=== PATIENT | male | born 1965 | race Caucasian/White ===

== ENCOUNTER → 2018-03-30 07:39 | Outpatient (CLI) | payer BC | END | disposition home or self-care (01) | LOC: D.CT 07:39 | DX: I67.1 Cerebral aneurysm, nonruptured (principal) ==

== ENCOUNTER 2021-03-19 11:30 | Day surgery (SDC) | payer BC ==
[~2021-03-19] VITALS: Ht 185.4 cm; Wt 107.4 kg
--- NOTE | ~2021-03-19 | HEMODYNAMI ---
PATIENT:GIOVANNI NOWAK MEDICAL RECORD: [id number] : 65 LOCATION:[facility] ADMISSION DATE: 03/19/21 Generatedon:114:02 Patient name: GIOVANNI NOWAK Patient #: [id number] : 1965 Date of study: 03/19/2021 Page: Of Hemodynamic Procedure Report Patient Data Patient Demographics Procedure consent was obtained First Name: GIOVANNI Gender: Male Last Name: ELIU : 1965 Middle Initial: KEMAL Age: 56 year(s) Patient #: [id number] Race: SSN: [id number] Additional ID: [id number] Contact details [address]: [address] [place] [address] State: [place] City: [place] Zip code: [address] Past Medical History Allergies: No known allergies Admission Admission Data Admission Date: 03/19/2021 Admission Time: 11:30 Arrival Date: 03/19/2021 Arrival Time: 13:00 Admit Source: Other Insurance Payor: Private health insurance [facility] #: [id number] Height (in.): 73 BSA: 2.32 (m2) Height (cm.): 185.42 BMI: 31.53 (kg/m2) Weight (lbs.): 239 Weight (kg.): 108.41 Lab Results Lab Result Date: 03/19/2021 Lab Result Time: 0:00 Biochemistry Name Units Result Min Max BUN mg/dl 19 --(----)*- 7 18 Creatinine mg/dl 1 --(--*-)-- 0.6 1.3 eGFR ml/min 82.11958 *-(----)-- 90 120 NONAFRICAN CBC Name Units Result Min Max Hematocrit % 46.7 --(-*--)-- 42 54 Hemoglobin g/dl 16.4 --(--*-)-- 13.5 17.5 Procedure Procedure Types Cath Procedure Diagnostic Procedure [facility] w/Coronaries FFR/IVUS FFR Initial Sedation Charges Moderate Sedation 25-39 minutes PCI Procedure Hemochron ACT Test Procedure Description Procedure Date Procedure Date: 03/19/2021 Procedure Start Time: 13:22 Procedure End Time: 14:00 Procedure Staff Name Function Gregory Nguyen MD Performing Physician Dayami Box RT Monitor Elenita Muro RT Scrub Vane Higgins RN Nurse Procedure Data Cath Procedure Fluoroscopy Diagnostic fluoroscopy Total fluoroscopy Time: 7.8 time: 7.8 min min Diagnostic fluoroscopy Total fluoroscopy dose: dose: 1198 mGy 1198 mGy Contrast Material Contrast Material Type Amount (ml) Isovue 370 99 Entry Location Entry Primary Successful Side Size Upsize Upsize Entry Closure Gardner ccessful Closure Location (Fr) 1 (Fr) 2 (Fr) Remarks Device Remarks Radial Right 6 Fr Mechanical artery Short Compression Femoral Right 5 Fr Exoseal artery Estimated blood loss: 10 ml Diagnostic catheters Device Type Used For End Catheter Placement DIAGNOSTIC [place] 110cm 5 Procedure Fr catheter ([id number]) Procedure Complications No complications Procedure Medications Medication Administration Route Dosage 0.9% NaCl I.V. 100 ml/hr Heparin Flush Bag added to field 2 bags (1000units/500ml NS) Lidocaine 2% added to field 20 Oxygen NC 3 l/min Radial Cocktail added to field 1 syringe (Verapamil 2mg/Nitro 400mcg/Heparin 1500units) Versed I.V. 1 mg Fentanyl 50 mcg Heparin Bolus I.V. 5000 units Versed I.V. 1 mg Fentanyl 50 mcg Versed I.V. 1 mg Fentanyl 50 mcg Versed I.V. 1 mg Fentanyl 50 mcg Hemodynamics Rest BSA: 2.32 (m2) HGB: 16.4 (g/dl) O2 Consumption: Estimated: 254.89 (ml/min) O2 Co nsumption indexed: Estimated:109.87 (ml/min/m) Heart Rate: 48 (bpm) Pressure Samples Time Site Value (mmHg) Purpose Heart Use Rate(bpm) 13:27 LV 132/31,44 Snapshot 59 Gradients Valve Time Site Site Mean SEP/DFP Peak To Heart Use 1 2 (mmHg) (sec/min) Peak Rate (mmHg) (bpm) Aortic 13:28 LV AO 63 Snapshots Pre Cath Intra NCS Post Cath Vital Signs Time Heart Resp SPO2 etCO2 NIBP (mmHg) Rhythm Pain Sedation Rate (ipm) (%) (mmHg) Status Level (bpm) 13:08:43 55 20 98 38.4 161/95(137) NSR 0 (11) 10(A) , No pain 13:13:01 49 15 99 36.9 148/89(114) NSR 0 (11) 10(A) , No pain 13:18:19 51 17 96 0 135/78(103) NSR 0 (11) 10(A) , No pain 13:22:41 49 12 91 33.1 132/75(100) NSR 0 (11) 10(A) , No pain 13:27:03 58 21 96 39.9 127/75(104) NSR 0 (11) 9(A) , No pain 13:31:23 62 12 89 24.8 124/76(92) NSR 0 (11) 9(A) , No pain 13:35:45 53 20 96 36.2 124/71(103) NSR 0 (11) 9(A) , No pain 13:39:57 51 13 98 18.1 117/73(91) NSR 0 (11) 9(A) , No pain 13:44:15 51 13 98 39.9 116/72(89) NSR 0 (11) 9(A) , No pain 13:48:35 51 15 97 41.4 106/67(93) NSR 0 (11) 9(A) , No pain 13:52:52 54 19 98 40.7 124/70(105) NSR 0 (11) 9(A) , No pain 13:58:09 50 26 96 0 119/71(98) NSR 0 (11) 10(A) , No pain Medications Time Medication Route Dose Verified Delivered Reason Note s Effectiveness by by 13:08:09 0.9% NaCl I.V. 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 1 mg Gregory Vane for sedation Patrick Higgins RN 13:23:47 Fentanyl 50 mcg Gregory Vane for sedation Patrick Higgins RN 13:27:15 Versed I.V. 1 mg Gregory Vane for sedation Patrick Higgins RN 13:27:33 Fentanyl 50 mcg Gregory Vane for sedation Patrick Higgins RN 13:31:01 Fentanyl 50 mcg Gregory Vane for sedation Patrick Higgins RN 13:31:42 Versed I.V. 1 mg Gregory Vane for sedation Patrick Higgins RN 13:35:10 Versed I.V. 1 mg Gregory Vane for sedation Patrick Higgins RN 13:35:46 Fentanyl 50 mcg Gregory Vane for sedation Patrick Higgins RN 13:44:03 Heparin Bolus I.V. 5000 Gregory Vane for veri fied units Patrick Higgins anticoagulation with dr SHARONA nguyen Procedure Log Time Note 12:53:36 Diagnostic Cath Status : Elective 12:54:10 Informed consent obtained and on chart 12:54:45 Arrival Date: 03/19/2021 1:00:00 PM 12:55:04 Admit Source: Other 12:55:06 Insurance Payor : Private health insurance 12:55:10 Patient Height : 73 inches 12:55:20 Patient Weight : 239 lbs 12:55:37 Procedure Status Elective Heart Cath (OP). 12:55:39 Elenita Muro RT(R) sent for patient. Start room use. 12:55:40 Time tracking: Regular hours (M-F 7:00 - 5:00) 12:55:44 Plan of Care:Hemodynamics will remain stable., Cardiac rhythm will remain stable., Comfort level will be maintained., Respiratory function will remain adequate., Patient/ family verbilizes understanding of procedure., Procedure tolerated without complication., Recovers from procedure without complications.. 13:01:02 ACC Patient presents with Stable Angina CCS Anginal Class 2--Slight limitation of ordinary activity. 13:01:05 Warm blankets applied, and jigna hugger turned on for patient comfort. 13:01:05 Correct patient and procedure confirmed by team. 13:01:06 ECG and BP/O2 sat monitors applied to patient. 13:01:10 Patient received from Pre/Post Procedure Room to CCL 2 Alert and oriented. Tansferred to table in Supine position. 13:01:22 H&P Date Dictated: 03/11/2021 Within 30 days and on chart.. 13:01:24 Pre-procedure instructions explained to patient. 13:01:24 Pre-op teaching completed and patient verbalized understanding. 13:01:26 Family in waiting room. 13::27 Patient NPO since Midnight. 13:01:33 Patient allergic to No known allergies 13:06:26 Vital chart was started 13:08:09 0.9% NaCl 100 ml/hr I.V. was administered by Vane Higgins RN; used for procedure; Verbal order read back and verified. 13:08:18 Heparin Flush Bag (1000units/500ml NS) 2 bags added to field was administered by Vane Higgins RN; used for procedure; Verbal order read back and verified. 13:08:26 Lidocaine 2% 20ml vial added to field was administered by Vane Higgins RN; for local anesthetic; Verbal order read back and verified. 13:08:36 Oxygen 3 l/min NC was administered by Vane Higgins RN; for low 02 sats; Verbal order read back and verified. 13:11:02 Baseline sample Acquired. 13:11:03 Full Disclosure recording started 13:11:06 Is the patient allergic to Iodine/contrast media? No. 13:11:10 Was the patient premedicated? Yes 13:11:11 Is patient on blood thinner?No 13:11:13 Patient diabetic? No. 13:11:14 If diabetic: On Metformin? N/A 13:11:15 ----Pre-sedation anethsthesia assessment.---- 13:11:17 Previous problem with sedation/anesthesia? No ? 13:11:19 Snore? Yes 13:11:20 Sleep apnea? Unknown 13:11:21 Deviated septum? No 13:11:23 Opens mouth fully? Yes 13:11:24 Sticks out tongue? Yes 13:11:26 Airway obstruction? No ? 13:11:28 Dentures? No ? 13:11:31 Pre procedure: right dorsailis pedis pulse 1+ Palpable, but thready & weak; easily obliterated 13:11:34 Modified Clay's test Ulnar < 7 seconds 13:11:37 Patient pain scale 0/10 ?. 13:11:44 IV patent on arrival in left forearm with 0.9% NaCl at [facility]. 13:12:31 Alarms reviewed by R. N. 13:12:31 Sharps counted by scrub and verified by R.N. 13:13:26 Lab results completed and on chart. 13:13:29 Stress Test: no; N/A ? 13:13:32 Right Radial & Right Groin area was prepped with chlora-prep and draped in sterile fashion 13:13:41 Rhythm: sinus bradycardia 13:14:41 Lab Result : BUN 19 mg/dl 13:14:41 Lab Result : Creatinine 1 mg/dl 13:14:41 Lab Result : eGFR NONAFRICAN 82.96947 ml/min 13:14:41 Lab Result : Hemoglobin 16.4 g/dl 13:14:41 Lab Result : Hematocrit 46.7 % 13:15:04 Use device set Radial Dx or PCI 13:15:06 ACIST Syringe (13069) opened to sterile field. 13:15:06 Medline Cath Pack ([id number]) opened to sterile field. 13:15:07 Bag Decanter (2002) opened to sterile field. 13:15:08 ACIST Hand Control (22315) opened to sterile field. 13:15:08 ACIST Manifold (64574) opened to sterile field. 13:15:09 MBrace Wrist Support ([id number]) opened to sterile field. 13:15:10 NEEDLE Cook 21G 4cm Radial (L97278) opened to sterile field. 13:15:12 EMERALD Guide Wire (950-906) opened to sterile field. 13:15:12 SHEATH 6FR RAIN (5752159) opened to sterile field. 13:18:51 Radial Cocktail (Verapamil 2mg/Nitro 400mcg/Heparin 1500units) 1 syringe added to field was administered by Vane Higgins RN; for vasodilation; Verbal order read back and verified. 13:20:20 --------ALL STOP TIME OUT------ 13:20:20 Final Timeout: patient, procedure, and site verified with staff and physician. All members of the team are in agreement. 13:20:22 Right Radial & Right Groin site verified by team. 13:20:26 Fire Safety Assessment: A--An alcohol-based skin anteseptic being used preoperatively., C--Open oxygen or nitrous oxide is being used., D--An ESU, laser, or fiber-optic light is being used. 13:20:28 Physical assessment completed. ASA score P 2 - A patient with mild systemic disease as per Gregory Nguyen MD. 13:20:31 2) 60-89 Mildly reduced kidney function, and other findings (as for stage 1) point to kidney disease. 13:21:00 Maximum allowable contrast dose (3.7 X eGFR X 0.75)228 ml. 13:21:03 Sedation plan: IV Moderate Sedation Medication:Versed, Fentanyl 13:22:52 Procedure started. 13:22:58 Local anesthetic to right radial artery with Lidocaine 2% by Gregory Nguyen MD.INITIAL ACCESS ONLY 13:23:40 Versed 1 mg I.V. was administered by Vane Higgins RN; for sedation; Verbal order read back and verified. 13:23:47 Fentanyl 50 mcg was administered by Vane Higgins RN; for sedation; Verbal order read back and verified. 13:25:40 A 6 Fr Short sheath was inserted into the Right Radial artery 13:26:33 A DIAGNOSTIC [place] 110cm 5 Fr catheter (497358) was advanced over the wire and used for Procedure. 13:27:15 Versed 1 mg I.V. was administered by Vane Higgins RN; for sedation; Verbal order read back and verified. 13:27:31 LV gram done using GARCIA 13:27:33 Fentanyl 50 mcg was administered by Vane Higgins RN; for sedation; Verbal order read back and verified. 13:27:34 Injector settings: Ml/sec: 5, Volume: 15, 13:27:59 LV hemodynamics recorded. 13:28:18 EF : 40 % 13:29:35 RCA angiography performed. 13:29:41 Injector settings: Ml/sec: 3, Volume: 6, 13:31:01 Fentanyl 50 mcg was administered by Vane Higgins RN; for sedation; Verbal order read back and verified. 13:31:42 Versed 1 mg I.V. was administered by Vane Higgins RN; for sedation; Verbal order read back and verified. 13:33:16 UNABLE TO ENGAGE CHANGING GUIDES. 13:33:19 Catheter exchanged over wire. 13:34:19 GUIDE 5FR EBU 3.75 catheter ([id number]) opened to sterile field. 13:35:10 Versed 1 mg I.V. was administered by Vane Higgins RN; for sedation; Verbal order read back and verified. 13:35:46 Fentanyl 50 mcg was administered by Vane Higgins RN; for sedation; Verbal order read back and verified. 13:36:48 UNABLE TO ENGAGE LCA, PROCEEDING TO GROIN. 13:37:11 Catheter exchanged over wire. 13:37:15 Local anesthetic to right femoral artery with Lidocaine 2% by Gregory Nguyen MD.ADDITIONAL ACCESS 13:37:50 Use device set Multipack Set 13:38:22 DIAGNOSTIC Multipack 5Fr catheter set ([id number]) opened to sterile field. 13:38:26 SHEATH 5FR Harrison (RSU333) opened to sterile field. 13:38:49 A 5 Fr sheath was inserted into the Right Femoral artery 13:39:40 LCA angiography performed. 13:39:43 Injector settings: Ml/sec: 3, Volume: 6, 13:41:43 Use device set NGUYEN PCI 13:41:45 INFLATOR Merit BasixCompak (AH2755) opened to sterile field. 13:41:46 TUBING High Pressure Extension Tubing (Patrick) ([id number]) opened to sterile field. 13:42:05 [place] OmniWire (21764) opened to sterile field. 13:43:23 Catheter exchanged over wire. 13:43:23 Proceeding to intervention. 13:43:35 5 Fr JL 4 guide catheter was inserted over the wire 13:44:03 Heparin Bolus 5000 units I.V. was administered by Vane Higgins RN; for anticoagulation; verified with dr nguyen Verbal order read back and verified. 13:46:10 Wire removed. 13:46:11 Guide catheter removed. 13:47:36 5 Fr EBU 3.75 guide catheter was inserted over the wire 13:47:55 Pressure wire advanced. 13:50:33 mLAD lesion measured at .92 with IFR 13:52:31 Wire removed. 13:52:31 Guide catheter removed. 13:52:55 EXOSEAL 5Fr (EX500) opened to sterile field. 13:53:14 ZEPHYR REGULAR TR BAND (430576) opened to sterile field. 13:53:25 Fluoroscopy time 07.80 minutes. 13:53:29 Fluoroscopy dose: 1198 mGy 13:53:29 Flurop Dose total: 1198 13:53:34 Dose Area Product 60444 mGy/cm. 13:53:38 Contrast amount:Isovue 370 99ml. 13:53:40 Maximum allowable dose exceeded? No. 13:53:47 Sheath removed intact; hemostasis achieved with Mechanical Compression to the Right Radial artery. 13:53:51 Sheath removed intact; hemostasis achieved with Exoseal to the Right Femoral artery. 13:53:54 Sharps counted by scrub and verified by R.N. 13:53:56 Procedure ended.(Physican Out) 13:54:40 Macy band inflated with 10cc of air. 13:54:43 Post-op/insertion site Right Femoral artery dressed using a 4 x 4 and Tegaderm. 13:54:48 Post right femoral artery:stable, soft, clean and dry 13:54:50 Post Procedure Pulses reassessed and unchanged 13:54:53 Post procedure: right dorsailis pedis pulse 1+ Palpable, but thready & weak; easily obliterated. 13:54:55 Post-procedure physical assessment completed. ASA score P 2 - A patient with mild systemic disease as per Gregory Nguyen MD. 13:54:58 Post procedure rhythm: unchanged. 13:55:00 Estimated blood loss: 10 ml 13:55:02 Post procedure instruction explained to patient.Patient verbalizes understanding. 13:55:02 Patient needs reinforcement of post procedure teaching. 13:57:47 Procedure type changed to Cath procedure, Diagnostic procedure, [facility] w/Coronaries, FFR/IVUS, FFR Initial, Sedation Charges, Moderate Sedation 25-39 minutes, PCI procedure, Hemochron ACT Test 14:00:06 Procedure and supply charges have been captured, reviewed, submitted and are correct. 14:00:12 Procedure Complication : No complications 14:00:17 [facility] Findings: MVD- PCI performed (see procedure note) 14:00:18 Vital chart was stopped 14:00:22 Operative report dictated upon procedure completion. 14:00:23 See physician's report for complete and final results. 14:00:31 ACT drawn and resulted at OUT OF RANGE seconds. (normal therapeutic range 180-240 seconds). 14:00:47 Report given to Pre/Post Procedure Room. 14:00:50 Patient transfered to Pre/Post Procedure Room with Stretcher. 14:00:52 Procedure ended. 14:00:52 Full Disclosure recording stopped 14:00:59 End room use (Document Last) 14:01:08 End room use (Document Last) Device Usage Item Name Manufacture Quantity Catalog Hospital Part Current Minima l Lot# / Number Charge Number Stock Stock Serial# Code ACIST Acist 1 44450 663455 374301 634595 20 Syringe Medical (17078) Systems Inc Medline Medline 1 [id number] 776630 44595 813237 5 Cath Pack (THGN14168) Bag Microtek 1 623528 56083 031071 5 Decanter Medical Inc. () ACIST Hand Acist 1 75552 606549 147671 027300 5 Control Medical (40857) Systems Inc ACIST Acist 1 93921 977462 254997 255161 5 Manifold Medical (90325) Systems Inc MBrace Advanced 1 140-0250-00 717490 84792 348543 5 Wrist Vascular Support Dynamics ([id number]) NEEDLE Cook Cook Medical 1 Y07982 928184 622352 270249 5 21G 4cm Radial (L22966) EMERALD Cardinal 1 502-455 869145 292515 391739 5 Guide Wire Health (502-455) SHEATH 6FR Cardinal 1 4594681 708190 6418465 260922 5 [facility] Health (7049283) DIAGNOSTIC Terumo 1 40-7333 470384 267397 823485 5 [place] 110cm 5 Fr catheter (844710) GUIDE 5FR Medtronic 1 [id number] 965788 746236 493099 1 EBU 3.75 catheter ([id number]) SHEATH 5FR Terumo 1 EMF698 318051 043940 524172 5 [place] (FJD871) DIAGNOSTIC Cardinal 1 TJ5066 949198 27975 437959 30 Multipack Health 5Fr catheter set (NA3856) INFLATOR Merit 1 FD2036 319504 702799 874310 15 Merit Medical BasixCompak (OJ3421) TUBING High Merit 1 [id number] 475627 44231 400685 10 Pressure Medical Extension Tubing (Nguyen) (AE6839P) [place] 1 7392703 707438 37292 9950 5 OmniWire (29548) EXOSEAL 5Fr Cardinal 1 EX500 539000 655374 017554 10 (EX500) Health ZEPHYR Cardinal 1 906612 728157 4565404 322545 5 REGULAR TR Health BAND (784966) Signature Audit [place] Stage Time Signature Unsigned Intra-Procedure 03/19/2021 Dayami Box 2:01:08 PM RT(R) Intra-Procedure 03/19/2021 Vane 2:01:47 PM Ronaldo RN Intra-Procedure 03/19/2021 Gregory Nguyen MD 2:02:16 PM Signatures Performing Physician : Signature : Gregory Nguyen MD Date : Time : Monitor : Dayami Box Signature : RT Date : Time : Nurse : Vane Signature : Ronaldo RN Date : Time : [facility] [address] [facility] [place] [address]
[2021-03-19] MEDS ORDERED: NORVASC5 MG PO (11:54)
[2021-03-19] MEDS ORDERED: MOBIC7.5 MG PO (11:54)
[2021-03-19] MEDS ORDERED: ULTRAM50 MG PO (11:54)
[2021-03-19] MEDS ORDERED: NEURONTIN 300300 MG PO (11:55)
[2021-03-19] MEDS ORDERED: VITAMIN D325 MC1 PO (11:56)
[2021-03-19 12:00] VITALS: BP 146/91; Ht 185.4 cm; Wt 107.4 kg
[2021-03-19 12:19] LABS: BASOPHILS 0.5 % (0-2); EOSINOPHILS 2.2 % (0-7); HEMATOCRIT 46.7 % (42.0-54.0); HEMOGLOBIN 16.4 g/dL (13.5-17.5); IMMATURE GRANULOCYTES 0.3 % (0-5); LYMPHOCYTE ABS# 1.68 10x3/uL (1.32-3.57); MCH 30.7 pg (26.0-34.0); MCHC 35.1 g/dL (31.0-37.0); MCV 87.5 fL (80.0-100.0); NEUTROPHIL ABS# 3.86 10x3/uL (1.78-5.38); PLATELET COUNT 255 10x3/uL (130-400); RBC 5.34 10x6/uL (4.20-6.10); RDW 12.5 % (11.5-14.5); WBC 6.2 10x3/uL (4.8-10.8)
[2021-03-19 12:37] LABS: ALT (SGPT) 22 U/L (10-68); CALC OSMOLALITY 283 mosm/kg (275-300); CALCIUM 8.9 mg/dL (8.5-10.1); CARBON DIOXIDE 28.8 mmol/L (21.0-32.0); CHLORIDE - SERUM 106 mmol/L (98-107); CHOL - HDL RATIO 3.6 ratio (2.3-4.9); CHOLESTEROL, TOTAL 167 mg/dL (0-200); GLUCOSE 89 mg/dL (74-106); HDL CHOLESTEROL 46 mg/dL (32-96); LDL CHOLESTEROL 98 mg/dL (0-100); LDL-HDL RATIO 2.1 ratio (1.5-3.5); POTASSIUM - SERUM 3.9 mmol/L (3.5-5.1); SODIUM 142 mmol/L (136-145); TRIGLYCERIDE 117 mg/dL (30-200); UREA NITROGEN 19 mg/dL (7-18); eGFR NON AFRICAN AMERICAN 82 mL/min (90-120)
--- NOTE | 2021-03-19 14:12 | NUR ---
PT ARRIVED BY STRETCHER. PLACED ON MONITORS. ASSESSMENT COMPLETED. VSS AT THIS TIME. FAMILY AT BEDSIDE.
--- NOTE | 2021-03-19 14:27 | NUR ---
RIGHT GROIN DRESSING C/D/I. NO S/S OF HEMATOMA NOTED. RIGHT PEDAL PULSE PALPABLE. RIGHT WRIST Z BAND IN PLACE. NO BLEEDING/HEMATOMA NOTED. PT RESTING COMFORTABLY. VSS AT THIS TIME. CALL LIGHT WITHIN REACH. FAMILY AT BEDSIDE.
--- NOTE | 2021-03-19 14:57 | NUR ---
PT RESTING COMFORTABLY. VSS AT THIS TIME. CALL LIGHT WITHIN REACH. RIGHT GROIN DRESSING C/D/I. NO S/S OF HEMATOMA NOTED. RIGHT WRIST Z BAND IN PLACE. NO BLEEDING/HEMATOMA NOTED. VSS AT THIS TIME. PT DENIES NAUSEA/PAIN. FAMILY AT BEDSIDE. PT RESTING COMFORTABLY. CALL LIGHT WITHIN REACH.
--- NOTE | 2021-03-19 15:30 | NUR ---
RIGHT GROIN DRESSING C/D/I. NO S/S OF HEMATOMA NOTED. PT DENIES NAUSEA/PAIN. RIGHT PEDAL PULSE PALPABLE. HEAD OF BED INC TO 30 DEGREES. TOLERATED WELL. SET UP WITH SANDWICH TRAY AND DRINK. 2cc OF AIR REMOVED FROM RIGHT Z BAND. NO BLEEDING/HEMATOMA NOTED. FAMILY AT BEDSIDE. CALL LIGHT WITHIN REACH. VSS AT THIS TIME.
--- NOTE | 2021-03-19 15:45 | NUR ---
3cc OF AIR REMOVED FROM Z BAND. NO BLEEDING/HEMATOMA NOTED. CALL LIGHT WITHIN REACH. RIGHT GROIN DRESSING C/D/I. NO S/S OF HEMATOMA NOTED. VSS. FAMILY AT BEDSIDE.
--- NOTE | 2021-03-19 16:00 | NUR ---
5cc OF AIR REMOVED FROM Z BAND. NO BLEEDING/HEMATOMA NOTED. VSS AT THIS TIME. RIGHT GROIN DRESSING C/D/I. NO S/S OF HEMATOMA NOTED. CALL LIGHT WITHIN REACH. PT RESTING COMFORTABLY. DENIES NAUSEA/PAIN.
--- NOTE | 2021-03-19 16:15 | NUR ---
Z BAND REMOVED AND DRESSING APPLIED. PT TOLERATED WELL. VSS. RIGHT GROIN DRESSING C/D/I. NO S/S OF HEMATOMA NOTED. PIV D/C'D WITH CATH TIP INTACT. TOLERATED WELL. PT INSTRUCTED TO GET UP AND DRESSED AT THIS TIME. FAMILY AT BEDSIDE TO ASSIST. CALL LIGHT LEFT WITHIN REACH.
--- NOTE | 2021-03-19 16:25 | NUR ---
DISCUSSED DISCHARGE INSTRUCTIONS WITH PT AND PT'S FAMILY. THEY VOICED UNDERSTANDING.
--- NOTE | 2021-03-19 16:35 | NUR ---
DISCUSSED DISCHARGE INSTRUCTIONS WITH PT AND PT'S . THEY VOICED UNDERSTANDING.
--- NOTE | 2021-03-19 16:40 | NUR ---
PT AMBULATED TO RESTROOM. VOIDED WITHOUT DIFFICULTY. STEADY GAIT NOTED.
--- NOTE | 2021-03-19 16:45 | NUR ---
PT TAKEN OUT TO VEHICLE BY WHEELCHAIR. NO S/S OF DISTRESS NOTED. ALL BELONGINGS AND PAPERWORK IN HAND. RIGHT WRIST DRESSING C/D/I. NO S/S OF HEMATOMA NOTED.
== END 2021-03-19 16:45 | disposition home or self-care (01) ==
LOC: D.CATH 11:30
PROVIDERS: ATTEND Internal Medicine Cardiovascular Disease
DX: I20.0 Unstable angina (principal); R07.9 Chest pain, unspecified